=== PATIENT | female | born 1940 | race Caucasian/White ===

== ENCOUNTER → 2016-10-11 | Outpatient (CLI) | payer BC ==
[~2016-10-11] MED LIST: ASPI81TA28 PO; CALC-20 PO; EPP3/2 IM; LEVO112T2 PO; LXP/20 PO; MULT-506 PO; OMEG10007 PO; SIMV-151 PO; ZNTT/150 PO
--- NOTE | 2016-10-11 12:58 | DIAGNOSTIC IMAGING REPORT ---
TWO VIEW CHEST CLINICAL HISTORY: Cough. Chest congestion. FINDINGS: PA and lateral chest radiographs are compared to study dated 10/10/2012. The cardiomediastinal silhouette is unremarkable. There is atherosclerotic calcification of the thoracic aorta. Chronic interstitial thickening is similar to previous. No airspace consolidation or pleural effusion is identified. There is no pneumothorax. The skeletal structures are osteopenic. 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 Cholecystectomy clips are seen in the right upper quadrant. IMPRESSION: No acute cardiopulmonary abnormality. Electronically signed by: Shay Schultz M.D. 10/11/2016 12:56 PM Dictated Date/Time: 10/11/2016 12:55 PM
== END | disposition home or self-care (01) ==
LOC: C.RAD 12:26
PROVIDERS: ATTEND Physician Assistant Medical
DX: R05 Cough (principal)

== ENCOUNTER → 2016-10-16 | Outpatient (CLI) | payer BC ==
[2016-10-16 17:59] LABS: ALT/SGPT 40 U/L (12-78); BLOOD UREA NITROGEN 16 mg/dl (7-18); BUN/CREATININE RATIO 16.4 (10-20); CARBON DIOXIDE 27 mmol/L (21-32); CHLORIDE 107 mmol/L (98-107); CHOLESTEROL 163 mg/dl (0-200); CREATININE 0.97 mg/dl (0.60-1.20); GLUCOSE 92 mg/dl (70-99); POTASSIUM 4.3 mmol/L (3.5-5.1); SODIUM 141 mmol/L (136-145); TRIGLYCERIDES 160 mg/dl (0-150); VERY LOW DENSITY LIPOPROT CALC 32 mg/dl
[2016-10-16 18:02] LABS: CALCIUM 9.5 mg/dl (8.5-10.1)
[2016-10-16 18:09] LABS: ALB/GLOB RATIO 1.1 (0.9-2); ALKALINE PHOSPHATASE 58 U/L (45-117); AST/SGOT 35 U/L (15-37); CHOLESTEROL/HDL RATIO 2.9; HDL CHOLESTEROL 56 mg/dl; LDL CHOLESTEROL CALCULATED 75 mg/dl
== END | disposition home or self-care (01) ==
LOC: C.LABPVFM 14:42
PROVIDERS: ATTEND Family Medicine
DX: E78.5 Hyperlipidemia, unspecified (principal); E03.9 Hypothyroidism, unspecified

== ENCOUNTER → 2017-05-21 | Outpatient (CLI) | payer BC ==
[2017-05-21 13:13] LABS: ALBUMIN 3.9 gm/dl (3.4-5.0); ALT/SGPT 42 U/L (12-78); BLOOD UREA NITROGEN 15 mg/dl (7-18); CALCIUM 9.4 mg/dl (8.5-10.1); CARBON DIOXIDE 28 mmol/L (21-32); CHOLESTEROL 168 mg/dl (0-200); CREATININE 0.91 mg/dl (0.60-1.20); GLUCOSE 92 mg/dl (70-99); POTASSIUM 4.4 mmol/L (3.5-5.1); SODIUM 139 mmol/L (136-145)
[2017-05-21 13:23] LABS: ALKALINE PHOSPHATASE 62 U/L (45-117); AST/SGOT 32 U/L (15-37); LDL CHOLESTEROL CALCULATED 82 mg/dl; TOTAL PROTEIN 7.5 gm/dl (6.4-8.2)
== END | disposition home or self-care (01) ==
LOC: C.LABPVFM 11:07
PROVIDERS: ATTEND Family Medicine
DX: E03.9 Hypothyroidism, unspecified (principal); E78.5 Hyperlipidemia, unspecified

== ENCOUNTER 2018-12-26 07:39 | Observation (INO) ==
--- NOTE | 2018-11-05 12:10 | PAT Medication Instructions ---
Medication Instructions Date of Service November 05, 2018 Home Medications aspirin [Aspirin Low Dose] 81 mg PO QPM buspirone 7.5 mg PO BID epinephrine [EpiPen] 0.3 mg IM Q3H PRN escitalopram oxalate 20 mg PO QPM levothyroxine [Synthroid] 112 mcg PO QPM ranitidine HCl 150 mg PO BID simvastatin 20 mg PO HS Continue as directed epinephrine [EpiPen] 0.3 mg IM Q3H NEEDED ASK your surgeon for instructions aspirin [Aspirin Low Dose] 81 mg PO QPM Take morning of surgery With a small sip of water, OTHERWISE NOTHING TO EAT OR DRINK AFTER MIDNIGHT: buspirone 7.5 mg PO BID ranitidine HCl 150 mg PO BID Take evening before surgery buspirone 7.5 mg PO BID escitalopram oxalate 20 mg PO QPM levothyroxine [Synthroid] 112 mcg PO QPM ranitidine HCl 150 mg PO BID simvastatin 20 mg PO HS Other Notes If you have any questions please call us at [phone] or [phone] or [phone] or [phone]
--- NOTE | 2018-11-05 12:20 | Anesthesiology Consultation ---
Date of Service November 05, 2018 Assessment & Plan (1) Encounter for pre-operative examination: -Both available anesthesia records were for TKA's and do not involve intubations. Chart Review Chart Review: Acceptable Risk for Surgery and Patient seen in Pre Admission Testing Consults Requested none Teaching & Discussion Pre-Anesthesia Teaching/Discussion Notes: Instructed NPO after midnight before surgery, except medications with 15 cc of water. Medication instructions provided according to the PAT guidelines. History Surgery Operation Date: 11/18/18 12:40 Proposed Procedures p L2-L3, L3-L4, L4-L5 Laminectomy - Joel Headley DO Height/Weight Height: 5 ft 6 in Weight: 121.8 kg Allergies Allergy/AdvReac Type Severity Reaction Status Date / Time Iodinated Contrast- Oral and Allergy Intermediate HYPOTENSION Verified 11/04/18 09:04 IV Dye shellfish derived Allergy Intermediate HYPOTENSIVE Verified 11/04/18 09:04 ondansetron Allergy Unknown "NOT QUITE Verified 11/04/18 09:04 SURE OF REACTION" Medications Home Medications Medication Instructions Recorded Confirmed Last Taken aspirin [Aspirin Low Dose] 81 mg PO QPM 09/11/18 11/04/18 10/23/18 buspirone 7.5 mg PO BID 09/11/18 11/04/18 10/23/18 epinephrine [EpiPen] 0.3 mg IM Q3H PRN 09/11/18 11/04/18 Unknown escitalopram oxalate 20 mg PO QPM 09/11/18 11/04/18 10/23/18 levothyroxine [Synthroid] 112 mcg PO QPM 09/11/18 11/04/18 10/23/18 ranitidine HCl 150 mg PO BID 09/11/18 11/04/18 10/23/18 simvastatin 20 mg PO HS 09/11/18 11/04/18 10/23/18 Past Medical History Medical History Anxiety Cancer RIGHT BREAST CANCER (2006) NO CHEMO/RADIATION Cardiac murmur A CHILD Chronic back pain Depression GERD (gastroesophageal reflux disease) Hearing deficit NO AIDES Hyperlipidemia Hyperthyroidism H/O WITH RADIOACTIVE IODINE Hypothyroidism Migraine OCCASIONAL Osteoarthritis Exercise / Class Metabolic Activity III < 4 Walking/Shop/Light housework (Limited due to back pain. Able to climb FOS, but with great effort due to pain. Denies CP or SOB. ) Past Surgical History Surgical History H/O arthroscopic knee surgery Bilateral History of cataract surgery RT/LEFT History of cholecystectomy History of colonoscopy History of detached retina repair LEFT EYE History of dilatation and curettage History of mastectomy BILATERAL History of tonsillectomy History of total knee replacement BILATERAL Past Anesthesia History No Hx of Anesthesia Complications and No Family Hx of Anesthesia Complications History of PONV No Hx of PONV and No Hx of Motion Sickness Social History Smoking Status: Never smoker Do You Dip or Chew Tobacco: No Hx Alcohol Use: No Hx Substance Use: No substance use type: does not use Review of Systems Patient denies chest pain, shortness of breath, dyspnea on exertion, cough, wheezing, palpitations. +Joint Pain (Back, Shoulders) +Acid Reflux (Controlled with current medications) Physical Exam Vital Signs BP: 140/75 P: 60 R: 16 T: 98.0 SPO2: 95% on RA Constitutional + morbidly obese ENMT Mouth: + small oral opening Thyromental Distance: > or= 3.5 Finger Breadths (4) Mallampati Class: III Neck normal visual inspection, trachea midline and + thick neck; neck extension not limited Respiratory normal respiratory effort Auscultation: lungs clear to auscultation bilaterally Cardiovascular Rate/Rhythm: regular rate and regular rhythm Heart Sounds: no murmur Vessels: no carotid bruit Neurologic moves all extremities Psychiatric Orientation: alert and oriented x 3 Testing Laboratory Results 11/05/18 11:55 11/05/18 11:55 PT 10.3 Seconds (9.0-12.0) 11/05/18 11:55 INR 1.0 (0.9-1.1) 11/05/18 11:55 APTT 25.6 Seconds (21.0-31.0) 11/05/18 11:55 Electrocardiogram Date: 11/05/18 Findings: + NSR @ (60) and + no change from (10/10/12) RSR' or QR pattern in V1 suggests right ventricular conduction delay. Chest X-Ray Date: 11/05/18 Findings: + NAD
[2018-11-05 12:45] LABS: Eosinophils # (auto) 0.17 K/uL (0-0.5); Eosinophils % (auto) 3.5 %; Hematocrit (blood only) 43.9 % (37-47); Hemoglobin 14.8 g/dL (12.0-16.0); Lymphocytes # (auto) 1.44 K/uL (1.2-3.4); Lymphocytes % (auto) 29.3 %; Mean Corpuscular Hgb Conc 33.7 g/dL (32-36); Mean Platelet Volume 11.3 fL (7.4-10.4); Monocytes # (auto) 0.45 K/uL (0.11-0.59); Monocytes % (auto) 9.2 %; Neutrophils # (auto) 2.75 K/uL (1.4-6.5); Platelet Count 155 K/uL (130-400); RDW Coefficient of Variation 13.3 % (11.5-14.5); RDW Standard Deviation 45.2 fL (36.4-46.3); Red Blood Count 4.72 M/uL (4.2-5.4); White Blood Count 4.91 K/uL (4.8-10.8)
[2018-11-05 12:58] LABS: Partial Thromboplastin Ratio 0.9; Partial Thromboplastin Time 25.6 Seconds (21.0-31.0); Prothrombin Time 10.3 Seconds (9.0-12.0)
--- NOTE | 2018-11-05 13:00 | XRay Report ---
XR chest Pre-admission PA/Lat CLINICAL HISTORY: pat COMPARISON STUDY: No previous studies for comparison. FINDINGS: The bones soft tissues and hemidiaphragms are normal. The cardiomediastinal silhouette is n ormal. The lungs are clear. The pulmonary vasculature is normal. IMPRESSION: Negative chest. The above report was generated using voice recognition software. It may contain grammatical, syntax or spelling errors. Electronically signed by: Byron Neri M.D. 11/05/2018 12:59 PM
[2018-11-05 14:51] LABS: BUN Creatinine Ratio 14.8 (10-20); Calcium 9.5 mg/dl (8.5-10.1); Creatinine Clr Calc Pharmacy 73.5 ml/min; Est GFR (African American) 74.5; Est GFR (Non-African American) 64.3; Potassium 4.3 mmol/L (3.5-5.1)
--- NOTE | 2018-12-25 12:43 | History and Physical Report ---
DATE OF ADMISSION: 12/26/2018 CHIEF COMPLAINT: Lower extremity difficulty, neurogenic claudication, walking inability. HISTORY OF PRESENT ILLNESS: Tami is delightful, she is 77. She has profound stenosis of spine. She is here for elective surgery at [facility]. PAST MEDICAL HISTORY: Positive for rheumatoid arthritis, thyroid disease, high cholesterol, breast CA, usual childhood diseases. PAST SURGICAL HISTORY: Gallbladder surgery, left knee replacement, right knee replacement, breast carcinoma surgery. ALLERGIES: ZOFRAN, IVP DYE, IODINE. FAMILY HISTORY: Diabetes, heart disease, kidney carcinoma. SOCIAL HISTORY: . No alcohol, no tobacco. Moderately active. REVIEW OF SYSTEMS: Twelve-system review is negative for fevers, sweats, chills. Admits to sinus issues. Denies chest pain, palpitations. No asthma, wheezing, shortness of breath. No nausea, vomiting, urgency, frequency. No memory loss, confusion. She has joint pain, stiffness and walking intolerance. MEDICATIONS: Include simvastatin, Lexapro, aspirin, EpiPen, Levoxyl. PHYSICAL EXAMINATION: VITAL SIGNS: Blood pressure 130/80, pulse 80, respiratory rate 16. HEENT: Pupils react to light and accommodation. Ear, nose, and throat clear. CARDIAC: Normal S1, S2, no S3. ABDOMEN: Soft and nontender. Bowel sounds present in all quadrants. LUNGS: Turk clear. MUSCULOSKELETAL: She has decreased range of motion of the spine. She has a gait abnormality. She has weakness with dorsiflexion and plantarflexion. NEUROLOGIC: Her reflexes are decreased. IMPRESSION: Profound stenosis, L2-L5 lumbar spine. PLAN: Includes a lumbar spine laminectomy, L2-L5.
[~2018-12-26 07:39] MED LIST changes: -ASPI81TA28 PO; -CALC-20 PO; +CEFAZOLIN 2000MG 2,000 MG/15 ML SYR IV SCH; +CEFAZOLIN 3000MG 72.5 ML IV SCH; -EPP3/2 IM; -LEVO112T2 PO; +LR 15ML/HR IV SCH; -LXP/20 PO; -MULT-506 PO; -OMEG10007 PO; -SIMV-151 PO; +SODIUM CHLORIDE 0.9% 1,000 ML IV SCH; +SODIUM CHLORIDE 0.9% 1000ML IV SCH; -ZNTT/150 PO
[2018-12-26] MEDS ORDERED: fentaNYL citrate 100 MCG/2 ML VIAL ONE ×2 (08:00→10:44)
[2018-12-26] MEDS ORDERED: BUPIVACAINE/EPINEPHRINE 0.5% MPF 1:200,000 30 ML VIAL ONE (09:52)
[2018-12-26] MEDS ORDERED: GELATIN SPONGE SZ 100 ONE (09:52)
[2018-12-26] MEDS ORDERED: THROMBIN FOR SOLN 20000 UNIT KIT ONE (09:52)
[2018-12-26] MEDS ORDERED: VANCOMYCIN HCL 1000MG/20ML VIAL ONE (09:52)
[2018-12-26] MEDS ORDERED: BACITRACIN INJ 50,000 UNIT VIAL ONE (09:53)
--- NOTE | 2018-12-26 10:01 | History & Physical Bridge Note ---
Date of Service December 26, 2018 History & Physical Bridge Note I have examined the patient, reviewed the History & Physical and in the interval since the performance of the History & Physical I have noted the following changes of clinical significance: no changes noted
[2018-12-26] MEDS ORDERED: SUCCINYLCHOLINE CHLORIDE 20 MG/ML 10 ML VIAL ONE (11:31)
[2018-12-26] MEDS ORDERED: LIDOCAINE HCL 2% 2 ML VIAL/AMP(20MG/ML) INFIL ONE (11:31)
[2018-12-26] MEDS ORDERED: NEOSTIGMINE METHYLSULFATE 5 MG/5 ML SYR ONE (11:31)
[2018-12-26] MEDS ORDERED: PROPOFOL IV EMULSION 10 MG/ML 20 ML VIAL IV ONE (11:31)
[2018-12-26] MEDS ORDERED: GLYCOPYRROLATE 0.2 MG/ML VIAL ONE (11:31)
[2018-12-26] MEDS ORDERED: CISATRACURIUM BESYLATE IV SOLN 2 MG/ML 10 ML VIAL IV ONE (11:31)
[2018-12-26] MEDS ORDERED: DEXAMETHASONE SOD INJ 4 MG/ML VIAL ONE (11:31)
[2018-12-26] MEDS ORDERED: PROMETHAZINE HCL 12.5 MG in SODIUM CHLORIDE 0.9% 50 ML IV PRN (11:56)
[2018-12-26] MEDS ORDERED: FLUMAZENIL 0.1 MG/1 ML 10 ML VIAL IV PRN (11:56)
[2018-12-26] MEDS ORDERED: NALOXONE HCL 0.4 MG/1 ML VIAL/CARP IV PRN (11:56)
[2018-12-26] MEDS ORDERED: ePHEDrine sulfate 50 MG/ML AMP IV PRN (11:56)
[2018-12-26] MEDS ORDERED: LABETALOL HCL IV 5 MG/ML 20ML IV PRN (11:56)
[2018-12-26] MEDS ORDERED: ATROPINE SULFATE 0.1 MG/ML 10ML SYR IV PRN (11:56)
--- NOTE | 2018-12-26 12:00 | Fluoroscopy Report ---
FL spine 1V any level CLINICAL HISTORY: 77 years-old Female presenting with L2-L5 LAMI. TECHNIQUE: 1 fluoroscopic image(s) recorded as part of an intraoperative procedure. COMPARISON: 10/29/2018. FINDINGS/IMPRESSION: Surgical material projects over the posterior aspect of the lumbar spine. Please see surgical report for further details. Fluoroscopy dosage (mGy): 2.54. Fluoroscopy time: 3.8 seconds. Number or time of high level fluoroscopy (HLF), digital spot, or digital subtraction images: 0. Electronically signed by: Mirza Garcia M.D. 12/26/2018 11:59 AM
--- NOTE | 2018-12-26 12:13 | Post Operative Brief Note ---
PG Immediate Post Op with CF Date of Surgery December 26, 2018 Pre & Post Diagnosis Operation Date: 12/26/18 09:50 Pre-Op Diagnosis: LUMBAR SPINAL STENOSIS W/OUT NEUROGENIC CLAUDICATION Post-Op Diagnosis: LUMBAR SPINAL STENOSIS W/OUT NEUROGENIC CLAUDICATION Procedure Operation Date: 12/26/18 09:50 Actual Procedures p L2-L3, L3-L4, L4-L5 Laminectomy(Not Applicable) - Joel Headley DO Surgeon Joel Headley DO Structural Designer he Estimated Blood Loss 300 Findings Consistent with Post-Op Diagnosis Specimens Specimen Description: none per surgeon Drains Gleason Catheter (16 urdu 10 ml) and Hemovac Drain Disposition Accompanied Patient To Recovery: Yes Overlapping Procedure I was immediately available: during the entire case.
--- NOTE | 2018-12-26 12:43 | Operative Report ---
DATE OF OPERATION: 12/26/2018 SURGEON: Joel Headley DO RESIDENTIAL PROPERTY TAX APPRAISER: Fady Cline PA-C PREOPERATIVE DIAGNOSIS: Severe spinal stenosis of the lumbar spine, L2-L3, L3-L4, L4-L5. POSTOPERATIVE DIAGNOSIS: Severe spinal stenosis of the lumbar spine, L2-L3, L3-L4, L4-L5. PROCEDURES: Included a posterior approach laminectomy, foraminotomy, partial facetectomy, L2-L3, L3-L4 and L4-L5 lumbar spine. DESCRIPTION OF PROCEDURE: The patient was first met in the preop holding area. She was identified, reviewed and initialed. I also did a formal bridge note on the patient. She was brought back to the operating room. A general anesthetic provided to the patient, intubated anesthetic. Gleason catheter was administered. Antibiotics administered. She was placed prone on the Flynn table. She was scrubbed first with Betadine, prepped with ChloraPrep and draped off sterile. We took a formal timeout. We commenced with surgery, made a skin incision, then fascial incision. We got all bleeders that we could take care of. She was fairly obese lady, it is fairly deep to the wound. We stripped down to the lumbar lamina and the facet joints and out even exposing some of the transverse processes. We put in a deep self-retaining retractor. We identified the levels with C-arm guidance knowing it was down to L5 level and up to the L2-L3 level. We did a formal decompression laminectomy starting down below at L5, L4, L3, L2. I used an assortment of techniques using a beth to thin out the lamina, curettes, Kerrisons of various sizes. I was pleased with the decompression, each and every nerve root was free to observation and to palpation. I then changed sides and was able to decompress the right hand side. There were no injuries to the dural structures and there was no injury to the nerve roots. We irrigated thoroughly with approximately 500 mL of fluid. We placed Gelfoam over the dural structures. We placed in a deep Hemovac drain. We sprinkled vancomycin powder into the wound. We closed the fascia with #1 Vicryl suture, then placed some vancomycin powder in the subcuticular layer, closed the subQ layer with 2-0 Vicryl suture. The skin was closed with staple gun. Sterile dressings applied. The patient returned supine, extubated safely, brought to the PACU improved, stable condition. Sponge and needle count correct at the close. ESTIMATED BLOOD LOSS: 300 mL. No complications. I attest to the content of the Intraoperative Record and any orders documented therein. Any exception s are noted below.
[2018-12-26] MEDS: HYDROmorphone INJ 1 MG/ML SYRINGE IV PRN ×4 (12:49→13:04)
--- NOTE | 2018-12-26 13:01 | Anesthesiology Progress Note ---
Date of Service December 26, 2018 Anesthesia Post Procedure Vital Signs Vital Signs: Temp Pulse Pulse Resp BP Pulse Ox 12/26/18 12:50 81 16 135/52 L 92 12/26/18 12:40 82 14 148/64 H 99 12/26/18 12:30 87 12 169/67 H 99 12/26/18 12:20 36.2 C L 99 H 24 188/69 H 99 12/26/18 08:15 36.5 C 64 18 158/67 H 93 Pain Intensity Back: Pain Intensity: 7 Transfer of Care Handoff Completed per policy Notes Mental Status: alert / awake / arousable Patient Amnestic to Procedure: Yes Nausea / Vomiting: adequately controlled Pain: adequately controlled Airway Patency, RR, SpO2: stable & adequate BP & HR: stable & adequate Hydration State: stable & adequate Anesthetic Complications: no major complications apparent
[2018-12-26] MEDS ORDERED: MAGNESIUM HYDROXIDE SUSP 30 ML UDC PO PRN (13:42)
[2018-12-26] MEDS ORDERED: EPINEPHRINE ADULT AUTO-INJECT 0.3 MG SYR IM PRN (13:42)
[2018-12-26] MEDS ORDERED: ACETAMINOPHEN 1,000 MG/100 ML VIAL IV PRN (13:42)
[2018-12-26] MEDS ORDERED: HYDROmorphone INJ 0.5 MG/0.5 ML SYR IV PRN (13:42)
[2018-12-26] MEDS ORDERED: HYDROmorphone INJ 1 MG/ML SYRINGE IV PRN (13:42)
[2018-12-26] MEDS ORDERED: ONDANSETRON INJ 2 MG/ML 2 ML VIAL IV PRN (13:42)
[2018-12-26] MEDS: SODIUM CHLORIDE 0.9% 1000ML 1,000 ML IV SCH (13:57)
[2018-12-26] MEDS: OXYCODONE HCL IR 5 MG TAB (IMMEDIATE RELEASE) PO PRN (18:20)
[2018-12-26] MEDS: CEFAZOLIN 2000MG 2,000 MG/15 ML SYR IV SCH (19:11)
[2018-12-26] MEDS: DOCUSATE SODIUM 100 MG CAP PO SCH (20:41)
[2018-12-26] MEDS: LEVOTHYROXINE SODIUM 112 MCG TABLET PO SCH (20:41)
[2018-12-26] MEDS: ESCITALOPRAM OXALATE 20 MG TAB PO SCH (20:41)
[2018-12-26] MEDS: SIMVASTATIN 20 MG TAB PO SCH (20:41)
[2018-12-26] MEDS: BUSPIRONE HCL 7.5 MG TAB PO SCH (20:41)
[2018-12-27] MEDS: SODIUM CHLORIDE 0.9% 1000ML 1,000 ML IV SCH (01:31)
[2018-12-27] MEDS: CEFAZOLIN 2000MG 2,000 MG/15 ML SYR IV SCH ×2 (03:38→10:51)
[2018-12-27] MEDS: BUSPIRONE HCL 7.5 MG TAB PO SCH ×2 (08:39→21:15)
[2018-12-27] MEDS: DOCUSATE SODIUM 100 MG CAP PO SCH ×2 (08:39→21:15)
[2018-12-27] MEDS: OXYCODONE HCL IR 5 MG TAB (IMMEDIATE RELEASE) PO PRN ×2 (08:41→17:54)
[2018-12-27] MEDS: ASPIRIN 81 MG ECTAB PO SCH (09:13)
--- NOTE | 2018-12-27 12:03 | Anesthesiology Progress Note ---
Date of Service December 27, 2018 Anesthesia Post Procedure Vital Signs Vital Signs: Temp Pulse Pulse Resp BP Pulse Ox 12/27/18 11:04 98 12/27/18 10:45 36.6 C 65 18 144/73 H 94 12/27/18 06:55 36.9 C 72 18 133/72 92 12/27/18 03:51 36.7 C 68 18 128/73 93 12/26/18 23:26 36.7 C 62 18 105/65 94 12/26/18 19:03 36.8 C 68 16 127/73 93 12/26/18 18:16 17 92 12/26/18 16:41 36.6 C 73 16 119/75 95 12/26/18 15:36 36.7 C 69 16 114/63 94 12/26/18 14:31 78 16 114/71 94 12/26/18 14:05 36.5 C 88 16 114/70 92 12/26/18 13:30 36.9 C 78 16 113/68 94 12/26/18 13:20 75 18 124/59 L 97 12/26/18 13:10 36.6 C 69 12 124/57 L 96 12/26/18 13:00 81 18 127/56 L 97 12/26/18 12:50 81 16 135/52 L 92 12/26/18 12:40 82 14 148/64 H 99 12/26/18 12:30 87 12 169/67 H 99 12/26/18 12:20 36.2 C L 99 H 24 188/69 H 99 Pain Intensity Back: Pain Intensity: 3 Notes Mental Status: alert / awake / arousable Patient Amnestic to Procedure: Yes Nausea / Vomiting: adequately controlled Pain: adequately controlled Airway Patency, RR, SpO2: stable & adequate BP & HR: stable & adequate Hydration State: stable & adequate Anesthetic Complications: no major complications apparent and Pt Satisfied with anesthetic care
[2018-12-27] MEDS: LEVOTHYROXINE SODIUM 112 MCG TABLET PO SCH (21:15)
[2018-12-27] MEDS: SIMVASTATIN 20 MG TAB PO SCH (21:15)
[2018-12-27] MEDS: ESCITALOPRAM OXALATE 20 MG TAB PO SCH (21:15)
[2018-12-28] MEDS ORDERED: BISACODYL 5 MG TABEC PO PRN (06:00)
[2018-12-28] MEDS: BUSPIRONE HCL 7.5 MG TAB PO SCH (08:21)
[2018-12-28] MEDS: ASPIRIN 81 MG ECTAB PO SCH (08:21)
[2018-12-28] MEDS: DOCUSATE SODIUM 100 MG CAP PO SCH (08:21)
[2018-12-28] MEDS: OXYCODONE HCL IR 5 MG TAB (IMMEDIATE RELEASE) PO PRN (08:25)
--- NOTE | 2018-12-28 09:01 | Discharge Summary ---
She is alert, oriented, no complaints. No chest pain, shortness of breath. Vital signs stable, afebrile, blood pressure controlled. Wound clean and protected. Neurologically intact. She has had an uneventful postoperative course. She will be discharged home today, improved stable condition. Prescriptions on her chart and a followup in 10 days.
== END 2018-12-28 12:50 | disposition home or self-care (01) ==
LOC: 3E 07:39 → ASU 07:39

== ENCOUNTER 2024-08-20 05:18 | Observation (INO) ==
--- NOTE | 2024-07-28 12:39 | Anesthesiology Consultation ---
Date of Service July 28, 2024 History Surgery Operation Date: 08/20/24 08:50 Proposed Procedures p Left Total Hip Arthroplasty - Aramis Plascencia MD Height/Weight Height: 5 ft 6 in Weight: 102.058 kg Allergies Allergy/AdvReac Type Severity Reaction Status Date / Time Iodinated Contrast Media Allergy Intermediate HYPOTENSION Verified 07/24/24 09:30 shellfish derived Allergy Intermediate HYPOTENSIVE Verified 07/24/24 09:30 ondansetron Allergy Unknown "NOT QUITE Verified 07/24/24 09:30 SURE OF REACTION" Medications Home Medications Medication Instructions Recorded Confirmed Last Taken aspirin 81 mg tablet 81 mg PO HS 05/30/19 07/24/24 01/01/22 acetaminophen 500 mg tablet 1,000 mg PO TID PRN Pain 01/05/22 07/24/24 Unknown (Tylenol Extra Strength) amoxicillin 500 mg tablet 2,000 mg (4 x 500 mg) PO ONCE #4 04/23/23 07/24/24 Unknown tabs epinephrine 0.3 mg/0.3 mL 0.3 mg (0.3 mL) IM UD PRN Allergic 08/02/23 07/24/24 Unknown injection, auto-injector (EpiPen) Reaction #2 ea cholecalciferol (vitamin D3) 50 50 mcg PO DAILY #30 caps 10/24/23 07/24/24 Unknown mcg (2,000 unit) capsule buspirone 10 mg tablet 10 mg PO TID #270 tabs 04/29/24 07/24/24 Unknown escitalopram oxalate 20 mg tablet 20 mg PO HS #90 tabs 04/29/24 07/24/24 Unknown gabapentin 300 mg capsule 300 mg PO TID #90 caps 04/29/24 07/24/24 Unknown levothyroxine 112 mcg tablet 112 mcg PO HS #90 tabs 04/29/24 07/24/24 Unknown (Synthroid) mirabegron 50 mg tablet,extended 50 mg PO HS #90 tabs 04/29/24 07/24/24 Unknown release 24 hr simvastatin 20 mg tablet 20 mg PO HS #90 tabs 04/29/24 07/24/24 Unknown lidocaine 5 % topical patch 1 patch topical DAILY #15 ea 07/15/24 07/24/24 Unknown (Lidoderm) valsartan 160 mg tablet 160 mg PO QAM 07/24/24 07/24/24 Unknown Past Medical History Medical History Cardiac murmur as child > no cards Chronic back pain Chronic SI joint pain Fall 07/15/24 > seen at [place] [facility] > right shoulder pain now, wearing pain patches GERD (gastroesophageal reflux disease) Hearing deficit History of anesthesia problem "had to be admitted overnight after gallbladder sx, in the late . Made me get an echocardiogram before I was discharged. They never told me what happened." History of anxiety History of depression History of gastroesophageal reflux (GERD) HTN (hypertension) Hx of breast cancer 2006 > sx Hx of migraines Hyperlipidemia Hyperthyroidism H/O WITH RADIOACTIVE IODINE Hypothyroidism Osteoarthritis Urge incontinence Past Family History Family History Mother Family history of diabetes mellitus Hypertension Father Lung cancer Cancer of kidney Heart disease Brother Myocardial infarction Brother Prostate cancer Denies family history of Ovarian cancer Breast cancer Colorectal cancer Past Surgical History Surgical History H/O arthroscopic knee surgery Bilateral History of cataract surgery Right eye done 10/01/18 and Left eye done 10/24/18 History of cholecystectomy History of colonoscopy (~01/10/17) History of detached retina repair left eye History of dilatation and curettage History of lumbar fusion pt unaware which levels History of mastectomy (~08/03/06) bilat > 2006 History of tonsillectomy History of total knee replacement bilat Social History Smoking Status: Never smoker Do You Dip or Chew Tobacco: No Hx Alcohol Use: No Hx Substance Use: No substance use type: does not use
--- NOTE | 2024-07-28 13:15 | PAT Medication Instructions ---
Medication Instructions Date of Service July 28, 2024 Home Medications Medication Instructions Recorded amoxicillin 500 mg tablet 2,000 mg (4 x 500 mg) PO ONCE #4 04/23/23 tabs epinephrine 0.3 mg/0.3 mL 0.3 mg (0.3 mL) IM UD PRN Allergic 08/02/23 injection, auto-injector (EpiPen) Reaction #2 ea cholecalciferol (vitamin D3) 50 50 mcg PO DAILY #30 caps 10/24/23 mcg (2,000 unit) capsule buspirone 10 mg tablet 10 mg PO TID #270 tabs 04/29/24 escitalopram oxalate 20 mg tablet 20 mg PO HS #90 tabs 04/29/24 gabapentin 300 mg capsule 300 mg PO TID #90 caps 04/29/24 levothyroxine 112 mcg tablet 112 mcg PO HS #90 tabs 04/29/24 (Synthroid) mirabegron 50 mg tablet,extended 50 mg PO HS #90 tabs 04/29/24 release 24 hr simvastatin 20 mg tablet 20 mg PO HS #90 tabs 04/29/24 lidocaine 5 % topical patch 1 patch topical DAILY #15 ea 07/15/24 (Lidoderm) Medication List: aspirin 81 mg tablet 81 mg PO HS acetaminophen 500 mg tablet (Tylenol Extra Strength) 1,000 mg PO TID PRN Pain amoxicillin 500 mg tablet 2,000 mg (4 x 500 mg) PO ONCE epinephrine 0.3 mg/0.3 mL injection, auto-injector (EpiPen) 0.3 mg (0.3 mL) IM UD PRN Allergic Reaction cholecalciferol (vitamin D3) 50 mcg (2,000 unit) capsule 50 mcg PO DAILY buspirone 10 mg tablet 10 mg PO TID escitalopram oxalate 20 mg tablet 20 mg PO HS gabapentin 300 mg capsule 300 mg PO TID levothyroxine 112 mcg tablet (Synthroid) 112 mcg PO HS mirabegron 50 mg tablet,extended release 24 hr 50 mg PO HS simvastatin 20 mg tablet 20 mg PO HS lidocaine 5 % topical patch (Lidoderm) 1 patch topical DAILY valsartan 160 mg tablet 160 mg PO QAM MEDICATION INSTRUCTIONS: Continue as directed amoxicillin 500 mg tablet 2,000 mg (4 x 500 mg) PO ONCE epinephrine 0.3 mg/0.3 mL injection, auto-injector (EpiPen) 0.3 mg (0.3 mL) IM UD PRN Allergic Reaction lidocaine 5 % topical patch (Lidoderm) 1 patch topical DAILY (do not apply after bathing prior to surgery) ASK your prescriber and surgeon aspirin 81 mg tablet 81 mg PO HS DO NOT take the morning of surgery valsartan 160 mg tablet 160 mg PO QAM cholecalciferol (vitamin D3) 50 mcg (2,000 unit) capsule 50 mcg PO DAILY Take morning of surgery With a small sip of water, OTHERWISE NOTHING TO EAT OR DRINK AFTER MIDNIGHT: gabapentin 300 mg capsule 300 mg PO TID buspirone 10 mg tablet 10 mg PO TID acetaminophen 500 mg tablet (Tylenol Extra Strength) 1,000 mg PO TID PRN Pain Take evening before surgery gabapentin 300 mg capsule 300 mg PO TID buspirone 10 mg tablet 10 mg PO TID acetaminophen 500 mg tablet (Tylenol Extra Strength) 1,000 mg PO TID PRN Pain escitalopram oxalate 20 mg tablet 20 mg PO HS levothyroxine 112 mcg tablet (Synthroid) 112 mcg PO HS mirabegron 50 mg tablet,extended release 24 hr 50 mg PO HS simvastatin 20 mg tablet 20 mg PO HS Other Notes If you have any questions please call us at [phone] or [phone] or [phone] or [phone]
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
--- NOTE | 2024-08-16 17:42 | History & Physical Report ---
Date of Service August 16, 2024 Assessment & Plan (1) Primary osteoarthritis of left hip: 83-year-old female last status post bilateral knee replacements 10+ years ago with advanced left hip arthritis. She failed conservative treatment. She like to proceed with left hip replacement. Plan: We are going to take her to the operating room do a left total hip replacement. The risks met this procedure explained and the patient understands. Informed consent is obtained. Will have a cemented stem available if needed. She is planning on pain discharged and will stay with her friend postoperatively with [facility] home health program. We have aspirin for DVT prophylaxis. (2) History of total knee replacement: (3) Hypertension: (4) Chronic reflux esophagitis: (5) Depression: (6) Hypothyroidism: (7) Hypercholesteremia: History of Present Illness Chief Complaint: . Left hip pain. Primary Care Provider: LOKESH Jackson . Patient is an 83-year-old female 1 me from previous knee replacements done 13 to 14 years ago. She done well from her knees. Over the past 2 years she developed increased pain discomfort in the left hip to the point where she has had to use a cane to get around. She did have an intra-articular injection by Dr. Ross which gave her some temporary relief. Pain has become more disabling. She does not feel like she can keep living like this. She like to have her hip fixed. Allergies Allergy/AdvReac Type Severity Reaction Status Date / Time ondansetron Allergy Unknown Unknown Verified 07/29/24 11:39 Iodinated Contrast Media AdvReac Intermediate Hypotension Verified 07/29/24 11:39 shellfish derived AdvReac Intermediate Hypotension Verified 07/29/24 11:39 Home Medications Medication Instructions Recorded Confirmed Type aspirin 81 mg tablet 81 mg PO HS 05/30/19 07/24/24 History acetaminophen 500 mg tablet 1,000 mg PO TID PRN Pain 01/05/22 07/24/24 History (Tylenol Extra Strength) amoxicillin 500 mg tablet 2,000 mg (4 x 500 mg) PO ONCE #4 04/23/23 07/24/24 Rx tabs epinephrine 0.3 mg/0.3 mL 0.3 mg (0.3 mL) IM UD PRN Allergic 08/02/23 07/24/24 Rx injection, auto-injector (EpiPen) Reaction #2 ea cholecalciferol (vitamin D3) 50 50 mcg PO DAILY #30 caps 10/24/23 07/24/24 Rx mcg (2,000 unit) capsule buspirone 10 mg tablet 10 mg PO TID #270 tabs 04/29/24 07/24/24 Rx escitalopram oxalate 20 mg tablet 20 mg PO HS #90 tabs 04/29/24 07/24/24 Rx gabapentin 300 mg capsule 300 mg PO TID #90 caps 04/29/24 07/24/24 Rx levothyroxine 112 mcg tablet 112 mcg PO HS #90 tabs 04/29/24 07/24/24 Rx (Synthroid) mirabegron 50 mg tablet,extended 50 mg PO HS #90 tabs 04/29/24 07/24/24 Rx release 24 hr simvastatin 20 mg tablet 20 mg PO HS #90 tabs 04/29/24 07/24/24 Rx lidocaine 5 % topical patch 1 patch topical DAILY #15 ea 07/15/24 07/24/24 Rx (Lidoderm) valsartan 160 mg tablet 160 mg PO QAM 07/24/24 07/24/24 History Past Med/Surg History Problem List Hip bursitis, left Primary osteoarthritis of left hip Hypertension Impingement syndrome of both shoulders Chronic SI joint pain Lumbar post-laminectomy syndrome Lumbar radicular pain Lumbar spondylosis Urge incontinence Chronic idiopathic urticaria Chronic reflux esophagitis (Acute) Urinary incontinence (Acute) Impaired fasting glucose (Chronic) Hypercholesteremia (Chronic) Encounter for pre-operative examination Anxiety Depression Degenerative joint disease (Acute) Hypothyroidism (Chronic) Medical History Chronic SI joint pain Urge incontinence History of gastroesophageal reflux (GERD) History of colon polyps HTN (hypertension) Hx of migraines Hx of breast cancer 2006 > surgery History of depression History of anxiety Osteoarthritis Chronic back pain Hypothyroidism Hx hyperthyroidism > radioactive iodine; now taking Levothyroxine GERD (gastroesophageal reflux disease) Hearing deficit Cardiac murmur "As child" Echo 04/2023: Trace to mild TR Hyperlipidemia Surgical History History of anesthesia problem "Had to be admitted overnight after gallbladder surgery in in the late 90s. Made me get an echocardiogram before I was discharged. They never told me what happened." History of lumbar fusion Patient unaware which levels H/O arthroscopic knee surgery Bilateral History of cataract surgery Right (09/2018), Left (10/2018) History of total knee replacement R/L History of colonoscopy History of cholecystectomy History of dilatation and curettage History of mastectomy bilat (2006) History of detached retina repair left eye History of tonsillectomy Family History Mother Family history of diabetes mellitus Hypertension Father Lung cancer Cancer of kidney Heart disease Brother Myocardial infarction Brother Prostate cancer Denies family history of Ovarian cancer Breast cancer Colorectal cancer Social History Smoking Status: Never smoker Second Hand Exposure: No; Do You Dip or Chew Tobacco: No; Hx Alcohol Use: No Hx Substance Use: No Preferred Language: [place] Communication Ability: Effective Visual Impairment: Limited Hearing Ability: Hard of Hearing Probate Judge Required: No Beliefs That Will Affect Care: None marital status: marital status details: Jun 2019 Current Living Situation: Family Current Living Situation Comment: granddaughter and 2 great grandchildren live with her current occupational status: retired 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 Physical Exam . Examination of the left hip reveal patient ambulates with a markedly antalgic gait. She Cos. use a walking device. Leg lengths. Pretty equal. Got very stiff hip with limited internal rotation which recreates pain. Negative straight leg raise. She is neurologically intact. Constitutional WD/WN, vitals as above Respiratory normal respiratory effort, lungs clear to auscultation Cardiovascular RRR, no murmur, no edema Gastrointestinal (Abdomen) normal bowel sounds, soft, nontender, no hepatosplenomegaly Results & Data Results & Data Laboratory Results . Diagnostic Findings . X-rays of left hip reviewed. She is got advanced left hip DJD. She is got complete loss of joint space. Diffuse osteopenia. She is got cystic change on both sides of the joint. PG Care Time/CCT Total # of Minutes Spent Total Time Spent with Patient: Total time spent is greater than 50% in coordination of care (as documented) at patient's floor/unit and/or counseling patient: Coding Level of Care Code None Diagnoses Primary osteoarthritis of left hip M16.12 History of total knee replacement Z96.659 Hypertension I10 Chronic reflux esophagitis K21.0 Depression F32.9 Hypothyroidism E03.9 Hypercholesteremia E78.00
[2024-08-20] MEDS: METOCLOPRAMIDE HCL 10 MG TABLET PO SCH (06:10)
[2024-08-20] MEDS: CeleBREX 200 MG CAP PO SCH (06:10)
[2024-08-20] MEDS: FAMOTIDINE 20 MG TAB PO SCH (06:10)
[2024-08-20] MEDS: ACETAMINOPHEN 500 MG TAB PO SCH ×2 (06:10→13:42)
[2024-08-20] MEDS: LR 60ML/HR IV SCH (06:11)
[2024-08-20] MEDS: LR 500ML BOLUS, THEN 15ML/HR IV SCH (06:11)
[2024-08-20] MEDS: dexAMETHasone**PF** 10 MG/ML VIAL IV SCH (06:12)
[2024-08-20] MEDS ORDERED: BUPIVACAINE 0.5 % 5 MG/1 ML PF 10ML VIAL ONE (06:34)
[2024-08-20] MEDS ORDERED: MIDAZOLAM HCL 1 MG/ML 2ML VIAL ONE (06:41)
[2024-08-20] MEDS: TRANEXAMIC ACID 1,000 MG **IV Pre-op IV SCH (06:43)
--- NOTE | 2024-08-20 06:43 | History & Physical Bridge Note ---
Date of Service August 20, 2024 History & Physical Bridge Note I have examined the patient, reviewed the History & Physical and in the interval since the performance of the History & Physical I have noted the following changes of clinical significance: no changes noted
[2024-08-20] MEDS ORDERED: PROPOFOL IV EMULSION 10 MG/ML 20 ML VIAL IV ONE ×2 (06:45→08:26)
[2024-08-20] MEDS ORDERED: DROPERIDOL 5 MG/2 ML VIAL IV PRN (06:52)
[2024-08-20] MEDS ORDERED: ATROPINE SULFATE 0.1 MG/ML 10ML SYR IV PRN (06:52)
[2024-08-20] MEDS ORDERED: fentaNYL citrate PF 100 MCG/2 ML VIAL IV PRN (06:52)
[2024-08-20] MEDS ORDERED: ePHEDrine sulfate 50 MG/ML AMP IV PRN (06:52)
[2024-08-20] MEDS: ceFAZolin 2000MG 2,000 MG/15 ML SYR IV SCH ×2 (07:00→14:38)
[2024-08-20] MEDS ORDERED: DexMEDEtomidine HCL IV 100 MCG/ML VIAL IV ONE (07:12)
[2024-08-20] MEDS ORDERED: LIDOCAINE 2% 2 ML VIAL/AMP(20MG/ML) INFIL ONE (07:13)
[2024-08-20] MEDS ORDERED: ePHEDrine sulfate 50 MG/5 ML SYR ONE (07:24)
[2024-08-20] MEDS: BUPIVACAINE/EPINEPHRINE 0.5% MPF 1:200,000 30 ML VIAL ONE (07:31)
--- NOTE | 2024-08-20 08:50 | Operative Report ---
PG Post Operative Report Pre & Post Diagnosis Operation Date: 08/20/24 07:00 Pre-Op Diagnosis: Left Hip Osteoarthritis Post-Op Diagnosis: Left Hip Osteoarthritis I identified the patient and participated in the time-out.: Yes Procedure Operation Date: 08/20/24 07:00 Actual Procedures p Left Total Hip Arthroplasty, Uncemented(Left) - Aramis Plascencia MD Surgeon Aramis Plascencia MD Pyrotechnist Stuart Crabtree PA-C Estimated Blood Loss 100 Findings Consistent with Post-Op Diagnosis Specimens Left femoral head sent for pathology. Anesthesia Type Spinal MAC Complications none Disposition Accompanied Patient To Recovery: No Indications Patient is an 83-year-old female who has had a history of bilateral knee replacements 10+ years ago. Over the past several years she developed increased pain discomfort left hip. Pains become more debilitating. She failed conservative measures. X-rays show advanced left hip arthritis. She elected proceed with total hip arthroplasty. Description of Procedure Operative implants consist of: 1. Biomet G7 size 54 mm acetabular shell. 2. 6.5 cancellous acetabular screws 1 at 35 mm length and 1 of 30 mm length. 3. Highly cross-linked polyethylene liner with a 54 mm outer diameter and a 36 mm diameter. 4. [place] hole pricing actuary. 5. DePuy Karaya size 13 KLA femoral stem. 6. +1.5/36 mm ceramic articular ball. The patient was taken to the op room, identified, placed on the operating table in the supine position. All conductors were appropriately padded. IV antibiotics fibra anesthesia team. A spinal anesthetic had been implemented holding area. A Gleason catheter was placed in sterile fashion. The patient then placed in the right lateral decubitus position. An axillary roll was placed. A stool Birkett hip position was used for positioning. The left hip and leg were then prepped and draped in usual sterile fashion. A posterolateral approach to the left hip was then performed through a curvilinear incision centered over the greater trochanter. Sharp dissection carried through subcutaneous tissue down to the IT band gluteal fascia. The IT band gluteal fascia was sized longitudinally in line with skin incision. Lateral and greater bursa was excised. The piriformis and external rotators along with the posterior joint capsule were then released from the hip as a single layer. Great care was taken throughout the procedure protect sciatic nerve at all times. Hip was internally rotated and dislocated. A femoral neck osteotomy cut was made with Final Cut about 8 mm above the lesser trochanter. Femoral head was removed and sent for pathology. The femur was retracted anteriorly. Attention was then drawn to the acetabulum. The acetabular labrum was excised. The pulmonary fat was excised. Sequential reaming the acetabular was then performed again with size 45 and progressing up to 53. Reamed a little bit with a 54 reamer and then placed a 54 mm Biomet cup in about 40 degrees lateral opening and 20 degrees of anteversion. Was fixed with two 6.5 screws. Attention then drawn the femur. The proximal femur was entered with a Storybyte cutter followed by canal finder. I then broached begin with size 8 and progressed up to a 13. Get excellent fitted to 13. Did not quite fit down the calcar. We trialed the hip. The +5 articular ball seemed a little bit tight particular in extension. We elected to place a 1.5 articular ball. Was fully stable otherwise. Leg lengths seemed equal. We elect to place these implants. All trial implants were removed. An apex hole pricing actuary was placed. Highly cross-linked polyethylene liner was placed. A size 13 KLA femoral stem was impacted in position. +1.5/36 mm ceramic articular ball was placed. Hip was located once again found to be stable. Attention was then drawn toward closing. The wound was irrigated coconuts pulsatile lavage solution. We did inject locally with 60 cc of half percent Marcaine with epinephrine. The posterior capsule and external rotators were then repaired through drill holes with #2 Tycron suture. The IT band gluteal fascia then closed in 1 PDS suture running fashion the subcutaneous tissue then closed with 2 layers of the deep layer #2 Vicryl suture in the subcutaneous tissues with 2-0 Dexon suture in a buried interrupted fashion. Skin was closed skin osmany. A Prevena VAC dressing was applied due to the fairly thick soft tissue envelope. The patient was then transferred to the recovery room in stable condition. The patient tolerated the procedure well and there were no complications. Stuart Crabtree, my physician certified medical technician assistant, was present for the entire procedure. His assistance was essential and required for appropriate patient positioning, prepping and draping, surgical exposure, performing the technical details of the operation, placement the implants, closure of the wound, and placement of the sterile bandage. I attest to the content of the Intraoperative Record and any orders documented therein. Any exceptions are noted below.
--- NOTE | 2024-08-20 08:58 | XRay Report ---
XR hip 1V LT w pelvis CLINICAL HISTORY: IN PACU - Post Surgical left hip replacement COMPARISON: 05/09/2019 FINDINGS: Single view of the pelvis and 2 views of the left hip demonstrate a left hip arthroplasty with satisfactory positioning and alignment of the prosthetic components. There is moderate osteoarth ritis of the right hip. Postoperative changes are noted in the soft tissues. IMPRESSION: Satisfactory postop appearance. ACT 112: Negative or not required by law. Electronically signed by: Maria M Anaya M.D. 08/20/2024 8:57 AM
[2024-08-20] MEDS ORDERED: SENNA 8.6 MG TAB PO SCH (10:15)
[2024-08-20] MEDS ORDERED: bisacodyL 10 MG SUPP PR PRN (10:15)
[2024-08-20] MEDS ORDERED: ONDANSETRON INJ 2 MG/ML 2 ML VIAL IV PRN (10:15)
[2024-08-20] MEDS ORDERED: HYDROmorphone INJ 0.5 MG/0.5 ML SYR IV PRN (10:15)
[2024-08-20] MEDS ORDERED: NALOXONE HCL 0.4 MG/1 ML VIAL/CARP IV PRN (10:15)
[2024-08-20] MEDS ORDERED: MAGNESIUM HYDROXIDE SUSP 30 ML UDC PO PRN (10:15)
[2024-08-20] MEDS ORDERED: METOCLOPRAMIDE HCL INJ 5 MG/ML 2 ML VIAL IV PRN (10:15)
[2024-08-20] MEDS ORDERED: ALUMINUM/MAGNESIUM SUSP 30 ML UDC PO PRN (10:15)
[2024-08-20] MEDS ORDERED: traMADol HCL 50 MG TABLET PO PRN (10:15)
[2024-08-20] MEDS ORDERED: EPINEPHrine INJ 1 MG/ML AMP IM PRN (10:35)
[2024-08-20] MEDS: busPIRone 5 MG TAB PO SCH (11:06)
[2024-08-20] MEDS: CHOLECALCIFEROL 25 MCG (1000 UNITS) TAB PO SCH (11:07)
[2024-08-20] MEDS: ASPIRIN 81 MG ECTAB PO SCH (11:07)
[2024-08-20] MEDS: GABAPENTIN 300 MG CAP PO SCH (11:07)
[2024-08-20] MEDS: DOCUSATE SODIUM 100 MG CAP PO SCH (11:07)
[2024-08-20] MEDS: MULTIVITAMIN TAB PO SCH (11:08)
[2024-08-20] MEDS: VALSARTAN 80 MG TAB PO SCH (11:08)
[2024-08-20] MEDS: KETOROLAC TROMETHAMINE 15 MG/ML VIAL IV SCH (11:09)
--- NOTE | 2024-08-20 11:25 | Anesthesiology Progress Note ---
Date of Service August 20, 2024 Anesthesia Post Procedure Vital Signs Vital Signs: Temp Pulse Pulse Resp BP BP Pulse Ox 08/20/24 11:00 36.4 C L 62 16 114/63 100 08/20/24 10:30 08/20/24 10:30 36.4 C L 67 18 117/63 96 08/20/24 10:05 67 15 121/53 L 95 08/20/24 09:50 69 12 122/52 L 96 08/20/24 09:35 36.4 C L 72 14 117/51 L 99 08/20/24 09:25 70 16 121/53 L 99 08/20/24 09:15 67 14 120/51 L 91 08/20/24 09:05 71 18 130/54 L 94 08/20/24 08:55 72 17 121/54 L 97 08/20/24 08:45 71 13 126/50 L 95 08/20/24 08:39 36.2 C L 71 14 138/51 L 97 08/20/24 05:56 36.4 C L 71 20 156/62 H 97 O2 Del Method O2 Flow Rate 08/20/24 11:00 Nasal Cannula 2 08/20/24 10:30 Nasal Cannula 2 08/20/24 10:30 Nasal Cannula 2 08/20/24 10:05 Nasal Cannula 2 08/20/24 09:50 Nasal Cannula 2 08/20/24 09:35 Nasal Cannula 2 08/20/24 09:25 Nasal Cannula 2 08/20/24 09:15 Room Air 08/20/24 09:05 Room Air 08/20/24 08:55 Oxymask 4 08/20/24 08:45 Oxymask 4 08/20/24 08:39 Oxymask 4 08/20/24 05:56 Room Air Notes Mental Status: alert / awake / arousable Patient Amnestic to Procedure: Yes Nausea / Vomiting: adequately controlled Pain: adequately controlled Airway Patency, RR, SpO2: stable & adequate BP & HR: stable & adequate Hydration State: stable & adequate Neuraxial Anesthesia: was administered and sensory block is resolving Anesthetic Complications: no major complications apparent
[2024-08-20] MEDS: TRANEXAMIC ACID / 0.7% NACL 1,000 MG/100 ML BAG IV SCH (14:38)
[2024-08-20] MEDS: ASCORBIC ACID 500 MG TAB PO SCH (17:01)
[2024-08-20] MEDS: ESCITALOPRAM OXALATE 20 MG TAB PO SCH (21:10)
[2024-08-20] MEDS: VIBEGRON 75 MG TAB PO SCH (21:10)
[2024-08-20] MEDS: LEVOTHYROXINE SODIUM 112 MCG TABLET PO SCH (21:10)
[2024-08-20] MEDS: SENNA 8.6 MG TAB PO SCH (21:10)
[2024-08-20] MEDS: SIMVASTATIN 20 MG TAB PO SCH (21:11)
[2024-08-21 03:24] VITALS: O2SAT 95
--- NOTE | 2024-08-21 07:12 | Orthopedic Progress Note ---
Date of Service August 21, 2024 Assessment & Plan (1) Status post left hip replacement: Plan: 83-year-old female postop day 1 from a left uncemented hip replacement doing pretty well. Pain is controlled. Hip is located. She is neurologically intact. Plan: 1. DVT prophylaxis including thigh-high teds, SCDs, aspirin twice a day. 2. PT/OT. Weight-bear as tolerated. Left total hip protocol. 3. Pain control. Doing well with current pain regimen. 4. Disposition. Plan is to discharge to home she is going to go to a friend's house and stay. Will get home health set up with a ride there. 5. Wound care. She got a Prevena VAC dressing intact. Will need instructions on management. (2) Hypertension: (3) Hypercholesteremia: (4) Hypothyroidism: Admission and Anticipated Discharge Date Admission Date: August 20, 2024 Subjective 83-year-old female postop day 1 from a left uncemented total hip replacement. That she is doing well this morning. Fairly minimal pain. No chest pain or shortness of breath. Not feeling dizzy or lightheaded. Physical Exam Physical Exam: Physical examination was a pleasant elderly female. She is lying in bed looks pretty comfortable this morning. Examination of left hip and leg reveals the P revena VAC dressing to be in place. Leg lengths are equal. Thigh is soft and supple. She is neurologically intact. Respiratory: normal respiratory effort, lungs clear to auscultation Cardiovascular: RRR, no murmur, no edema Gastrointestinal (Abdomen): normal bowel sounds, soft, nontender, no hepatosplenomegaly Results & Data Vital Signs (Past 12 Hours) Vital Signs Temp Pulse Resp BP Pulse Ox O2 Del Method 08/21/24 03:23 36.4 C L 67 18 149/71 H 95 Room Air 08/21/24 00:10 36.6 C 56 L 18 117/68 94 Room Air 08/20/24 19:38 36.4 C L 61 18 129/77 96 Room Air Laboratory Results Labs are pending.
[2024-08-21 07:13] LABS: Basophils # (auto) 0.03 K/uL (0.00-0.20); Basophils % (auto) 0.2 %; Eosinophils # (auto) 0.01 K/uL (0.00-0.50); Eosinophils % (auto) 0.1 %; Hematocrit (blood only) 30.1 % (37.0-47.0); Immature Granulocytes # (auto) 0.04 K/uL (0.01-0.20); Immature Granulocytes % (auto) 0.3 %; Lymphocytes # (auto) 1.16 K/uL (1.20-3.40); Lymphocytes % (auto) 9.6 %; Mean Corpuscular Hemoglobin 31.4 pg (25.0-34.0); Mean Corpuscular Hgb Conc 33.2 g/dL (32.0-36.0); Mean Corpuscular Volume 94.7 fL (80.0-100.0); Mean Platelet Volume 11.8 fL (9.4-12.4); Monocytes % (auto) 7.4 %; Neutrophils # (auto) 9.98 K/uL (1.40-6.50); Neutrophils % (auto) 82.4 %; Platelet Count 134 K/uL (130-400); RDW Coefficient of Variation 12.4 % (11.5-14.5); RDW Standard Deviation 43.4 fL (36.4-46.3); Red Blood Count 3.18 M/uL (4.20-5.40); White Blood Count 12.12 K/ul (4.8-10.8)
[2024-08-21 07:20] VITALS: BP 117/68; RESP 16; TEMP 97.3
[2024-08-21] MEDS: dexAMETHasone 10 MG in SYRINGE 0 ML IV SCH (07:43)
[2024-08-21 07:52] LABS: Calcium 8.7 mg/dl (8.6-10.3); Creatinine Clr Calc Pharmacy 53.2 ml/min; Potassium 4.1 mmol/L (3.5-5.1)
[2024-08-21 10:19] VITALS: PULSE 64
--- NOTE | 2024-08-22 14:09 | Discharge Summary ---
Date of Service August 22, 2024 Admission HPI (Per Admitting) . Patient is an 83-year-old female 1 me from previous knee replacements done 13 to 14 years ago. She done well from her knees. Over the past 2 years she developed increased pain discomfort in the left hip to the point where she has had to use a cane to get around. She did have an intra-articular injection by Dr. Ross which gave her some temporary relief. Pain has become more disabling. She does not feel like she can keep living like this. She like to have her hip fixed. Admission Exam (Per Admitting) . Examination of the left hip reveal patient ambulates with a markedly antalgic gait. She Cos. use a walking device. Leg lengths. Pretty equal. Got very stiff hip with limited internal rotation which recreates pain. Negative straight leg raise. She is neurologically intact. Principal Diagnosis Same as "Discharge Diagnosis" noted below under Discharge Instructions. Discharge Data Procedures Performed Operation Date: 08/20/24 07:00 Actual Procedures p Left Total Hip Arthroplasty, Uncemented(Left) - Aramis Plascencia MD Hospital Course (1) Status post left hip replacement: This is a 83 year old patient admitted on 08/20/24 and underwent total hip arthroplasty. She tolerated the procedure well and there were no complications. Transferred to the PACU post op and later to the orthopedic floor for further care. She was given ancef for antibiotic prophylaxis. She was also given MARILU stockings, SCDs, and aspirin for DVT prophylaxis. Hemoglobin, hematocrit, and vital signs were monitored during her hospital stay and remained stable. Did not require any blood transfusions. There were no complications during her hospital stay. By post op day #1 the patient was tolerating a regular diet, pain was reasonably controlled with oral pain medicine, and she was participating in physical therapy. On post op day #1 the patient was discharged home and set up with home health care. She was given printed discharge instructions including prescriptions for extra strength tylenol, aspirin, cefadroxil, zofran, senokot, and tramadol. Continue physical therapy, weight bearing as tolerated. Continue MARILU stockings. Follow up approximately 2 weeks post op or sooner if there are problems or concerns. PG Care Time/CCT Total # of Minutes Spent Total Time Spent with Patient: Total time spent is greater than 50% in coordination of care (as documented) at patient's floor/unit and/or counseling patient: Discharge Plan Discharge Items Patient Disposition: Home - Home Health Services Reason For Visit: Left Hip Osteoarthritis Discharge Diagnosis: Left Hip Replacement Activity: Per Instructions section Activity Comment: Follow/Obey hip precautions at all times. Weightbearing: Full weightbearing Weightbearing Comment: Weightbear as tolerated obeying hip precautions at all times. Non-emergency contact: Surgeon Call non-emergency contact if: you have any medication questions Follow-up/Referrals: Brittany Bonilla CRNP [Primary Care Provider] - Diet: Regular Addtl Attending Provider Instructions: ACTIVITY RECOMMENDATIONS: Diet: * You may resume previous diet. Physical Therapy: * Aggressive physical therapy is not usually needed. You will learn to take care of yourself safely and walk. * Follow the "Hip Precautions Instructions." * In some cases, the social media campaign manager at the hospital will arrange to have a therapist come to your house for the first couple of weeks to help you learn these skills. * You need to practice on your own or with the help of a family member as needed. * When you learn these skills, most of the therapy can be done on your own. Home Exercise: * You were shown a series of exercises in the hospital. Do these exercises three to four times each day including the exercises you were shown in physical therapy. Walking: * Get up and walk several times each day. For the first four weeks, try not to stand or walk for more than one hour at a time. If you do stand or walk for more than one hour, you will not hurt anything, but your leg will likely swell. * As you feel comfortable, you may change from the walker or crutches to a cane and then to independent walking. MEDICATIONS: New Medicine: * You will likely be taking one or more of these medicines: 1. Tramadol - Take, as directed, when you need it, every six hours to control your pain. 2. Aspirin - Thins your blood to lessen the chance of forming a blood clot. * The most common side effects of pain medicine and iron are nausea and constipation. If nausea or constipation is too much of a problem or if you have any questions about your new medicines or doses, call [facility] at . We will try to help you manage these issues. "VERY IMPORTANT TO READ AND REVIEW" Pain: * The immediate post-operative period after hip replacement surgery is often quite painful. * You are given a prescription for pain medicine. You should take it, as directed, when you need it, especially before physical therapy and before going to bed. Pain that interferes with sleep is very common and can last several months. * You will likely need pain medicine for the first two to four weeks. It will not stop all of the pain. The pain will lessen and as you feel better, you may change to milder pain medicine such as Tylenol. * The most common side effects of pain medicine are nausea and constipation, so don't take more than you need. SPECIAL CARE INSTRUCTIONS: TEDs/Elastic Stockings: * The white elastic stockings help limit swelling and prevent blood clots from forming in your legs. The more you wear them, the more they work. * Wear them for six weeks. Incision Site Care: * Remove dressing postoperative day 2 and then shower. Keep direct shower pressure off the incision site. * After showering, cover osmany with dry gauze and change daily or more frequently if the dressing is getting saturated with drainage. * May completely stop using bandage if wound is dry and no drainage * Confluence are removed between 2 and 3 weeks post-op. If your follow-up appointment is made before 2 weeks, please have your appointment re- scheduled. It is too early to remove the osmany. Prevention of Infection: * Take antibiotics one hour before any dental cleaning, dental work, urological procedure, gastrointestinal procedure or any invasive surgery in order to prevent your new joint from getting infected. * You may get the antibiotics from the doctor performing the procedure or you may call our office at before and we will call in a prescription to the pharmacy of your choice. Things to Watch For: * Drainage from the incision site that occurs more than one week after your surgery. * Severely increased leg pain or swelling. * Increased redness at the incision site. * Fever above 102 degrees Fahrenheit. * Unusual chest pain or shortness of breath. * Unusual pain or burning with urination. Call [facility] at with any of the above problems or if you have any questions about your medicines or recovery. FOLLOW UP VISIT: Make an appointment to see your doctor for approximately two weeks after surgery for a progress check and staple removal by calling the office at . Pending Studies at Discharge: No Stand-Alone Forms: My [facility], Smoking Cessation Medications and DC Order Prescriptions: Continued acetaminophen [Tylenol Extra Strength] 500 mg tablet 1,000 mg PO TID PRN (Reason: Pain) cholecalciferol (vitamin D3) 50 mcg (2,000 unit) capsule 50 mcg PO DAILY Qty: 30 0RF tramadol 50 mg tablet 50 - 100 mg PO Q6 PRN (Reason: pain) Qty: 40 0RF Rx Instructions: Take as needed for pain ondansetron 4 mg tablet,disintegrating 4 mg PO Q8 PRN (Reason: nausea) Qty: 20 1RF Rx Instructions: Take as needed for nausea sennosides [Senokot] 8.6 mg tablet 8.6 mg PO BID 14 Days Qty: 28 0RF Rx Instructions: Take two times a day to prevent/treat constipation acetaminophen [Tylenol Extra Strength] 500 mg tablet 1,000 mg PO TID 30 Days Qty: 180 0RF Rx Instructions: Take 3 tomes per day to lessen pain. aspirin [Nubia Low Dose Aspirin] 81 mg tablet,delayed release (DR/EC) 81 mg PO BID 45 Days Qty: 90 0RF Rx Instructions: Take to prevent blood clots. cefadroxil 500 mg capsule 500 mg PO BID 7 Days Qty: 14 0RF Rx Instructions: Take 1 cap twice a day to prevent infection aspirin 81 mg tablet 81 mg PO HS amoxicillin 500 mg tablet 2,000 mg PO ONCE Qty: 4 2RF Rx Instructions: TAKE 4 TABLETS ONE HOUR PRIOR TO DENTAL WORK epinephrine [EpiPen] 0.3 mg/0.3 mL auto-injector 0.3 mg IM UD PRN (Reason: Allergic Reaction) Qty: 2 1RF Rx Instructions: 0.3 mg IM as directed PRN; buspirone 10 mg tablet 10 mg PO TID Qty: 270 3RF escitalopram oxalate 20 mg tablet 20 mg PO HS Qty: 90 3RF gabapentin 300 mg capsule 300 mg PO TID Qty: 90 5RF levothyroxine [Synthroid] 112 mcg tablet 112 mcg PO HS Qty: 90 3RF mirabegron 50 mg tablet extended release 24 hr 50 mg PO HS Qty: 90 3RF simvastatin 20 mg tablet 20 mg PO HS Qty: 90 3RF valsartan 160 mg tablet 160 mg PO QAM lidocaine [Lidoderm] 5 % adhesive patch,medicated 1 patch topical DAILY Qty: 15 0RF Rx Instructions: leave on most painful area for up to 12 hrs Admission Data Admit Date/Time: 08/20/24 08:44 Attending Provider: Aramis Plascencia Admit Provider: Aramis Plascencia Primary Care Provider: Brittany Bonilla Other Providers: [facility],Home [facility] Other Interventions: Discharge Summary Assessment (RN) Last Done: 08/21/24 10:18
== END 2024-08-21 11:40 | disposition home health service (06) ==
LOC: 3E 05:18 → ASU 05:18